=== PATIENT | female | born 1985 | race Caucasian/White ===

== ENCOUNTER 2017-10-29 22:34 | Emergency (ER) | payer MEDICAID | END 2017-10-30 00:35 | disposition home or self-care (01) | LOC: D.ER 22:34 | DX: J11.1 Influenza due to unidentified influenza virus with other respiratory manifestations (principal) ==

== ENCOUNTER 2018-02-18 14:43 | Emergency (ER) | payer MEDICAID ==
[2018-02-18 15:27] LABS: BASOPHILS 0.2 % (0-2); EOSINOPHILS 1.8 % (0-7); HEMOGLOBIN 12.7 g/dL (12-16); IMMATURE GRANULOCYTES 0.1 % (0-5); LYMPHOCYTES 22.5 % (15-50); MCH 29.4 pg (26.0-34.0); MCHC 33.4 g/dL (31.0-37.0); MEAN PLATELET VOLUME 10.9 fL (7.4-10.4); MONOCYTES 7.4 % (2-11); PLATELET COUNT 293 10x3/uL (130-400); RBC 4.32 10x6/uL (4.00-5.40); WBC 10.3 10x3/uL (4.8-10.8)
[2018-02-18 15:43] LABS: ALBUMIN 3.8 g/dL (3.4-5.0); ALT (SGPT) 26 U/L (10-68); BILIRUBIN - TOTAL 0.21 mg/dL (0.2-1.3); CALC OSMOLALITY 277 mosm/kg (275-300); CALCIUM 9.1 mg/dL (8.5-10.1); CARBON DIOXIDE 27.2 mmol/L (21.0-32.0); CHLORIDE - SERUM 103 mmol/L (98-107); CREATININE - SERUM 0.7 mg/dL (0.6-1.3); GLUCOSE 96 mg/dL (74-106); POTASSIUM - SERUM 3.8 mmol/L (3.5-5.1); PROTEIN - SERUM 7.3 g/dL (6.4-8.2); SODIUM 140 mmol/L (136-145); UREA NITROGEN 10 mg/dL (7-18); eGFR NON AFRICAN AMERICAN > 90 mL/min (90-120)
[2018-02-18 15:51] LABS: CREATINE KINASE 87 UL (21-215)
[2018-02-18 15:52] LABS: ALKALINE PHOSPHATASE 55 U/L (46-116); TROPONIN-I < 0.017 ng/mL (0.000-0.060)
== END 2018-02-18 17:41 | disposition home or self-care (01) ==
LOC: D.ER 14:43
PROVIDERS: Emergency Medicine
DX: J45.901 Unspecified asthma with (acute) exacerbation (principal); I45.4 Nonspecific intraventricular block; F17.200 Nicotine dependence, unspecified, uncomplicated